=== PATIENT | female | born 1990 | race Caucasian/White ===

== ENCOUNTER 2020-11-12 14:15 | Outpatient (REF) | payer MEDICARE, MEDICAID, SELFPAY ==
--- NOTE | 2020-11-12 15:37 | MHC.AU.FUL ---
Hearing Instrument Follow-Up Date of Visit: 11/12/20 Left Ear: Fixture Fabricator Repairer: Oticon Model: Safari 300 13P BTE Serial Number: [id number] Repair Warranty: 12/09/2013 Loss and Damage Warranty: 12/10/2011 Battery Size: 13 Dispensed By: [facility] Date of Fittin11/25/2010 Follow-Up Summary: Patient arrived for audiological re-evaluation. Otoscopy revealed deeply impacted cerumen in the left ear. EarWaxMD drops were used. A combination of suction and disposable lighted curette were used to attempt cerumen removal. While some cerumen was removed, there is still a deep impaction that is completely occluding the canal. Audiological evaluation was not performed today, as the cerumen occlusion would significantly affect the results. Ear wax removal by PCP or ENT will be needed prior to evaluation. Hearing aid maintenance performed. Tubing replaced. Mold cleaned. Hearing aid is amplifying. Patient has now had this hearing aid for 10 years. Advised discussing new amplification after the next audiological evaluation, as the technology has greatly improved. Her current hearing aid is also considered obsolete by the retail sales associate seasonal, meaning it can no longer be repaired if something were to happen. Recommendations: Follow-up with PCP or ENT for cerumen removal in the left ear. Advised use of EarWaxMD drops at home until cerumen removal by a medical professional can be performed. Audiological re-evaluation after cerumen removal. Diagnosis Code(s): Primary Diagnosis: H90.0 Conductive Hearing Loss, Bilateral Secondary Diagnosis: H61.22 Impacted Cerumen, Left Ear Signature: Provider: Ashley Lloyd, [facility]
== END 2020-11-12 14:16 | disposition home or self-care (01) ==
LOC: HO.SH 14:15
PROVIDERS: Visit Provider Internal Medicine
DX: H61.22 Impacted cerumen, left ear (principal)
CPT/HCPCS: 92592

== ENCOUNTER 2021-01-24 13:36 | Outpatient (REF) | payer MEDICARE, MEDICAID, SELFPAY ==
--- NOTE | 2021-01-31 09:02 | MHC.AU.MED ---
Medical Clearance for Hearing Instrumentation Date: 01/24/21 Patient Name: Anna Goel Date of : 1990 Referring Provider: Aleksandar Pike MD We have seen your patient on 01/24/21 and have determined that they are a candidate for amplification (See accompanying report). Specifically, they would benefit from: Hearing aid use in the left ear There is a statute that addresses Medical Evaluation Requirements prior to fitting a patient with a hearing aid. According to [place] statute [facility] CMR:6.03(1), (a) General. Except as provided in 265 CMR 6.03(1)(b), a swing tender shall not sell a hearing aid unless the prospective user has presented to the swing tender a written statement signed by a licensed physician that states that the patient's hearing loss has been medically evaluated and the patient may be considered a candidate for a hearing aid. The medical evaluation must have taken place within the preceding six months. Please note: Due to the [place] Statute referenced above, we cannot accept a signature other than that of a licensed physician. ENGINEERING SCIENTIST and PA signatures cannot be accepted. I am in agreement with the above recommendation. There is no medical contraindication for hearing instrumentation. Physician Signature Date Physician Name (Printed)
--- NOTE | 2021-01-31 09:03 | MHC.AU.AHA ---
Adult Audiological Evaluation Date of Visit: 01/24/21 Reason for Appointment: History of fluctuating conductive hearing loss, worse in the left ear. History of middle ear dysfunction and right tympanic membrane perforation. At her previous visit on 11/12/20, the left canal was completely occluded with cerumen. Cerumen removal by PCP or ENT was recommended before performing the hearing test. Previous Hearing Test Results: At this clinic on 09/12/2017: Right: Mild rising to normal/borderline and sloping to mild conductive hearing loss. 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 Date of Fittin11/25/2010 Otoscopy: Right Ear: Tympanic membrane perforation Left Ear: Completely occluded with cerumen Tympanometry: Tympanometry performed due to: To assess integrity of the middle ear system Right Ear: Tympanic Membrane Perforation Left Ear: Small ear canal volume and non-compliant, consistent with occlusion Hearing Evaluation: Transducer(s) Used: Circumaural Headphones Method: Conventional Audiometry Stimuli Used: Pure Tones Right Ear: Description of Hearing: Mild to moderately-severe mixed hearing loss Left Ear: Description of Hearing: Severe to profound mixed hearing loss Speech Recognition Threshold (SRT): Method Used: Monitored Live Voice Stimuli Used: Spondee Words Right Ear: 30 dBHL Left Ear: 70 dBHL Word Discrimination: Method: Recorded Lists Word Lists Used: W-22 Right Ear: 96% at 70 dBHL Left Ear: 92% at 95 dBHL Comparison: Compared to the most recent evaluation: Thresholds have decreased bilaterally. Interpretation of Results: In the left ear, threshold have decreased significantly. Most of this decrease is likely a result of the cerumen occlusion; however, it was also noted that the bone conduction thresholds at 2000 and 4000 Hz have decreased, suggesting a portion of this change is also sensorineural in nature. In the right ear, the low-mid frequency thresholds are stable, and the high frequency thresholds have decreased. This change appears to be sensorineural in nature, as bone conduction thresholds are consistent with air conduction thresholds. Recommendations: Audiological re-evaluation is recommended in 6 months due to sensorineural changes noted today. Follow-up with Ear, Nose, and Throat is recommended to address cerumen occlusion in the left ear as well as the sensorineural hearing changes. Patient is eligible for a new hearing aid. See hearing aid evaluation report for more details. Diagnosis: Primary Diagnosis: H90.6 Mixed Hearing Loss, Bilateral Secondary Diagnosis: H61.22 Impacted Cerumen, Left Ear Signature: Provider: Ashley Lloyd, CCC-A
--- NOTE | 2021-01-31 09:04 | MHC.AU.HAS ---
Hearing Aid Evaluation Date of Visit: 01/24/21 Historical Information: Description of Hearing: As of today's visit: Right: Mild to moderately-severe mixed hearing loss Left: Severe to profound mixed hearing loss Current personal amplification information, if applicable: A left-sided Oticon Safari 300 13P BTE, obtained 11/25/2010 Summary: Patient was seen for audiological re-evaluation (see separate report for details). Patient has a history of left-sided hearing aid use. Her current instrument is 10 years old and is out of warranty. New amplification is recommended, as the technology has significantly changed. Her current hearing aid is also no longer being sold or serviced by the tray drier and would be unable to be repaired. Hearing aid options were discussed. Patient would be a candidate for a hearing aid in her right ear as well. Her father would like to hold off on the right side for now, as she does not consistently wear the left hearing aid. Once she starts more consistently wearing the left hearing aid, the right hearing aid will be reconsidered. Discussed the different varieties of hearing aids. We will stick with the BTE style due to her history of cerumen occlusions, as it would be easier to clean and would not require frequent replacement of wax traps, such as in a ARGELIA. Hearing Aid Prescription: Based on the individual?s shared listening needs, communication environments, dexterity, desire for connectivity, and personal preferences, the following prescription for amplification has been made: Left ear: Evening Sitter: OtOomnitza Model: OPN S PP BTE Battery Size: 13 Color: Silver Type of Mold: Microsonic Canal Shell- M2000 Clear Action Taken/Action Needed: Earmold Impressions Taken Medical Clearance to be requested from PCP/ENT Hearing Instrument Fitting to be scheduled when materials arrive Cerumen occlusion was noted in the left canal today. Follow-up with ENT was recommended for cerumen management. At the fitting, pure tone re-check should be performed to check levels after cerumen is removed. Primary Diagnosis: H90.6 Mixed Hearing Loss, Bilateral Secondary Diagnosis: H61.22 Impacted Cerumen, Left Ear Signature: Provider: Ashley Lloyd, CCC-A
== END 2021-01-24 13:37 | disposition home or self-care (01) ==
LOC: HO.SH 13:36
PROVIDERS: Visit Provider Internal Medicine
DX: Z46.1 Encounter for fitting and adjustment of hearing aid (principal); H90.6 Mixed conductive and sensorineural hearing loss, bilateral; H61.22 Impacted cerumen, left ear
CPT/HCPCS: 92557; 92567; 92590; V5275

== ENCOUNTER 2021-03-29 12:23 | Outpatient (REF) | payer MEDICARE, MEDICAID, SELFPAY ==
--- NOTE | 2021-03-29 13:40 | MHC.AU.FUL ---
Hearing Instrument Follow-Up Date of Visit: 03/29/21 Left Ear: Scrum Coach: Oticon Model: OPN S2 PP BTE Serial Number: [id number] Repair Warranty: 03/26/2024 Loss and Damage Warranty: 03/26/2024 Battery Size: 13 Color: Silver Type of Mold: Microsonic Canal Shell- M2000 Clear Type of Wax Guard: Dispensed By: [facility] Date of Fitting: Follow-Up Summary: Scheduled for HAF. Cerumen was removed by PCP shortly following last visit. Today Otoscopy shows completely occluding cerumen again. Able to partially remove cerumen today without complication. Advised using the Ear Wax MD drops. Pure Tone check shows significant improvement in left ear thresholds. Proceeded with HAF; however, earmold does not fit. Tried to modify but constant hearing aid feedback. Took impression of the left ear without complication and sent for remake. Recommendations (Other): Scheduled HAF for 04/08/21. Father will bring Anna's old earmold for the fitting. Diagnosis Code(s): Primary Diagnosis: H90.6 Mixed Hearing Loss, Bilateral Secondary Diagnosis: H61.22 Impacted Cerumen, Left Ear Services Performed: BARRERA Non-Quantity Charges: HANC: NonBillable Event Signature: Provider: Elan Johnson, CCC-A
== END 2021-03-29 12:24 | disposition home or self-care (01) ==
LOC: HO.HAP 12:23
PROVIDERS: Visit Provider Pediatrics
DX: Z13.89 Encounter for screening for other disorder (principal)

== ENCOUNTER 2021-04-08 11:59 | Outpatient (REF) | payer MEDICARE, MEDICAID, SELFPAY ==
--- NOTE | 2021-04-08 13:14 | MHC.AU.HFL ---
Hearing Instrument Fitting- Adult- Left Ear Date of Visit: 04/08/21 Hearing Instrument(s) Dispensed: Left Ear: Shoe Handler: Oticon Model: OPN S2 PP BTE Serial Number: [id number] Repair Warranty: 03/26/2024 Loss and Damage Warranty: 03/26/2024 Battery Size: 13 Color: Silver Type of Mold: Microsonic Canal Shell- M2000 Clear Remake warranty 09/05/2021 Summary of Fitting: Patient brought in old left earmold for today's fitting as the new earmold was sent back for remake last week. Significant feedback occurred during the initial fit of the left aid when set at level 3 and still occurred when decreased to level 1. Otoscopy shows mostly occluding cerumen again. Patient is scheduled with ENT in 2-3 weeks and advise ENT do cerumen removal. Ran feedback test and feedback improved enough to continue with fitting at level 1. Patient has not been using a hearing aid for a long time, so starting at level 1 will likely help her to get used to wearing the aid again. DID NOT run Real Ear due to the cerumen. Volume control was deactivated and all features on default. Reviewed insertion of aid and care with mother. Dispensed 42 batteries. Recommendations: Recommendations: Hearing instrument care and maintenance were discussed and practiced. See handouts for care/use instructions and battery information. A hearing instrument follow-up is recommended in 2-3 weeks. Recommendations: Run Real Ear if cerumen has been removed. Check datalogging and determine if Anna can tolerate aid at targets or if she continues to need the reduced gain. Diagnosis Code(s): Primary Diagnosis: H90.6 Mixed Hearing Loss, Bilateral Secondary Diagnosis: H61.22 Impacted Cerumen, Left Ear Services Performed: Earmold (Quantity): 1 Musician's Plug (Quantity): BARRERA Dispensing Fees: DISO MON L, HAFOC, ECON BARRERA Product Codes: HABTEMON 3 L Number of Individual Battery Cells: 42 Signature: Provider: Ashley Johnson, CCC-A
== END 2021-04-08 12:00 | disposition home or self-care (01) ==
LOC: HO.HAP 11:59
PROVIDERS: Visit Provider Pediatrics
DX: Z46.1 Encounter for fitting and adjustment of hearing aid (principal); H90.6 Mixed conductive and sensorineural hearing loss, bilateral
CPT/HCPCS: V5011; V5020; V5241; V5257; V5264; V5266

== ENCOUNTER 2021-04-26 12:22 | Outpatient (REF) | payer MEDICARE, MEDICAID, SELFPAY | END 2021-04-26 12:23 | disposition home or self-care (01) | LOC: HO.HAP 12:22 | PROVIDERS: Visit Provider Pediatrics | DX: Z13.89 Encounter for screening for other disorder (principal) ==

== ENCOUNTER 2021-07-22 10:22 | Outpatient (REF) | payer MEDICARE, MEDICAID, SELFPAY ==
--- NOTE | 2021-07-25 08:06 | MHC.AU.FUL ---
Hearing Instrument Follow-Up Date of Visit: 07/22/21 Left Ear: Furniture Sprayer: Oticon Model: OPN S2 PP BTE Serial Number: [id number] Repair Warranty: 03/26/2024 Loss and Damage Warranty: 03/26/2024 Battery Size: 13 Color: Silver Type of Mold: Microsonic Canal Shell- M2000 Clear Remake warranty 09/05/2021 Dispensed By: [facility] Date of Fittin04/05/2021 Follow-Up Summary: Father reports the left aid continues to be too loud for Anna. In particular, loud sounds make her jump and she does not want to consistently wear the aid. Father said she seems to hear well at home and they do not encourage consistent use at this time. Discussed how Anna will continue to have difficulty tolerating all sounds if she does not wear the every day, all day. Patient is already below targets. Decreased overall gain and MPO 3 dB and decreased louds overall an additional 2 dB. Also paired aid to cell phone per father's request and practiced listening to her music if she wants. Recommendations: Hearing instrument follow-up or maintenance as needed. Please contact our clinic with any questions or concerns. Diagnosis Code(s): Primary Diagnosis: H90.6 Mixed Hearing Loss, Bilateral Signature: Provider: Ashley Johnson, [facility]
== END 2021-07-22 10:23 | disposition home or self-care (01) ==
LOC: HO.HAP 10:22
PROVIDERS: Visit Provider Pediatrics
DX: Z13.89 Encounter for screening for other disorder (principal)

== ENCOUNTER 2022-07-25 12:54 | Outpatient (REF) | payer MEDICARE, MEDICAID, SELFPAY | END 2022-07-25 12:55 | disposition home or self-care (01) | LOC: HO.HAP 12:54 | PROVIDERS: Visit Provider Pediatrics | DX: Z46.1 Encounter for fitting and adjustment of hearing aid (principal); H90.3 Sensorineural hearing loss, bilateral | CPT/HCPCS: V5020 ==

== ENCOUNTER 2023-04-17 12:53 | Outpatient (REF) | payer MEDICARE, MEDICAID, SELFPAY ==
--- NOTE | 2023-04-17 16:50 | MHC.AU.HA3 ---
Hearing Instrument Follow-Up- Binaural Date of Visit: 04/17/23 Left Ear: Make, Model, Color, Serial Number: O[employer]pe[employer] OPN S 2 PP BTChelly López #[id number] Brim Buster Repair Warranty: 03/26/2024 Brim Buster Loss and Damage Warranty: 03/26/2024 [facility] Service Plan: 04/05/2022 Battery Size: 13 Senior Java Programmer Analyst/Slim Tube: Earmold/Dome/CShell/SlimTip: Microsonic Canal Shell- M2000 Clear Remake warranty 09/05/2021 Type of Wax Guard: Dispensed By: [facility] Date of Fittin04/05/2021 Follow-Up Summary: Anna is here for a retubing of her hearing aid, reporting it has been too short for quite some time. Retubed and cleaned aid, listening check OK. Otoscopy shows occluding wax left ear, nonoccluding right ear. Attempted removal per her father's request, but Anna was sensitive to even the otoscope and they elected to have it done at her PCP instead. Follow up as needed. Recommendations: Recommendations: Hearing instrument maintenance in 6 months, or sooner if needed. Diagnosis Code(s): Primary Diagnosis: H90.6 Mixed Hearing Loss, Bilateral Signature: Provider: Ashley Dave, [facility]
== END 2023-04-17 12:54 | disposition home or self-care (01) ==
LOC: HO.HAP 12:53
PROVIDERS: Visit Provider Internal Medicine
DX: Z46.1 Encounter for fitting and adjustment of hearing aid (principal); H90.6 Mixed conductive and sensorineural hearing loss, bilateral
CPT/HCPCS: 92592; 99499